=== PATIENT | female | born 1955 | race Caucasian/White ===

== ENCOUNTER 2023-08-19 10:55 | Inpatient (IN) ==
[2023-08-19 12:00] LABS: Basophils # (Auto) 0.04 K/mcL (0.00-0.30); Basophils % (Auto) 0.3 % (0.0-2.0); Eosinophils # (Auto) 0.02 K/mcL (0.00-0.70); Eosinophils % (Auto) 0.1 % (0.0-7.0); Hematocrit 27.9 % (34.1-44.9); Hemoglobin 9.1 g/dL (11.2-15.7); Lymphocytes # (Auto) 1.33 K/mcL (1.50-4.80); Lymphocytes % (Auto) 9.4 % (15.5-49.0); Mean Cell Volume 75.8 fL (80.0-100.0); Mean Corpuscular HGB Conc 32.6 g/dL (31.0-36.0); Monocytes # (Auto) 0.73 K/mcL (0.10-0.90); Monocytes % (Auto) 5.2 % (1.0-12.0); Neutrophils % (Auto) 84.7 % (38.0-78.0); Platelet Count 597 K/mcL (140-440); RBC 3.68 M/mcL (3.59-5.38); Red Cell Distribution Width 15.9 % (11.5-14.5); WBC 14.2 K/mcL (4.5-11.0)
[2023-08-19 12:15] LABS: ALT/SGPT 12 U/L (<40); AST/SGOT 14 U/L (<32); Albumin 3.4 gm/dL (3.2-5.2); Albumin/Globulin Ratio 1.2 (1.0-2.3); Alkaline Phosphatase 86 U/L (39-117); Bilirubin,Total < 0.2 mg/dL (0.1-1.0); Blood Urea Nitrogen 7 mg/dL (8-23); Calcium 8.9 mg/dL (8.6-10.4); Carbon Dioxide 20 mmol/L (22-30); Chloride 90 mmol/L (96-108); Globulin 2.9 gm/dL (2.2-3.7); Glomerular Filtration Rate 90; Glucose 124 mg/dL (70-105); Thyroid Stimulating Hormone 0.01 uIU/mL (0.27-5.01)
[2023-08-19 12:33] LABS: Appearance,Urine Clear (Clear); Bacteria,Urine Many /hpf (0); Bilirubin,Urine Negative (Negative); Color,Urine Yellow; Culture Indicated,Urine Yes; Glucose,Urine (UA) Negative (Negative); Ketones,Urine Negative (Negative); Leukocyte Esterase,Urine Negative /uL (Negative); Nitrate,Urine Positive (Negative); Protein,Urine Negative (Negative); Urine Blood Negative ery/mcL (Negative); Urine RBC 0 /hpf (0-3); Urine Squamous Epithelial Cell 3 /hpf (0-4); Urine WBC 1 /hpf (0-4); Urobilinogen,Urine Normal
[2023-08-19] MEDS: cefTRIAXone 1 GM VIAL IV ONE (13:27)
[2023-08-19] MEDS: AZITHROMYCIN 500 MG in DEXTROSE 5% IN WATER 250 ML IV ONE (13:28)
[2023-08-19 14:04] LABS: Sodium, Urine Random < 20 mmol/L
[2023-08-19 14:06] LABS: Anisocytosis 1+ (None Seen); Lymphocytes % 8 % (15-49); Monocytes % (Manual) 5 % (1-12); Platelet Estimate INCREASED (Normal); RBC Morphology ABNORMAL (Normal); Segmented Neutrophils % 87 % (38-78)
[2023-08-19 14:09] LABS: Osmolality,Urine 157 mOSM/kg (80-1000)
[2023-08-19] MEDS: 0.9 % SODIUM CHLORIDE 500 ML IV ONE (14:38)
[2023-08-19 15:03] LABS: Phosphorous 2.6 mg/dL (2.5-4.5); Uric Acid 3.2 mg/dL (2.5-8.0)
[2023-08-19] MEDS ORDERED: POTASSIUM CHLORIDE 40 MEQ in DEXTROSE 5% IN WATER 500 ML IV PRN (15:40)
[2023-08-19] MEDS ORDERED: SENNOSIDES 1 TABLET PO PRN (15:40)
[2023-08-19] MEDS ORDERED: MAGNESIUM SULFATE 2 GM/50 ML BAG IV PRN (15:40)
[2023-08-19] MEDS ORDERED: POLYETHYLENE GLYCOL 3350 17 GM PACKET PO PRN (15:40)
[2023-08-19] MEDS ORDERED: POTASSIUM CHLORIDE 20 MEQ TABLET PO PRN ×2 (15:40)
[2023-08-19] MEDS ORDERED: IPRATROPIUM/ALBUTEROL 3 ML AMPUL.NEB NEB PRN (15:40)
[2023-08-19] MEDS ORDERED: ONDANSETRON 4 MG/2 ML VIAL IV PRN (15:40)
[2023-08-19] MEDS: 0.9 % SODIUM CHLORIDE 1,000 ML IV SCH (16:56)
[2023-08-19 18:45] LABS: Blood Urea Nitrogen 4 mg/dL (8-23); Calcium 8.3 mg/dL (8.6-10.4); Carbon Dioxide 20 mmol/L (22-30); Chloride 102 mmol/L (96-108); Glomerular Filtration Rate 94; Glucose 95 mg/dL (70-105)
[2023-08-19] MEDS: 0.45 % SODIUM CHLORIDE 1,000 ML IV SCH (20:06)
[2023-08-19] MEDS ORDERED: FAMOTIDINE 20 MG TABLET PO PRN (21:02)
[2023-08-19] MEDS: DOCUSATE SODIUM 100 MG CAPSULE PO SCH (21:18)
[2023-08-19] MEDS ORDERED: DICYCLOMINE 20 MG TABLET PO PRN (21:42)
[2023-08-19] MEDS ORDERED: PREGABALIN 75 MG CAPSULE PO PRN (21:43)
[2023-08-19] MEDS: LEVALBUTEROL TARTRATE INH PRN (21:43)
[2023-08-19] MEDS: LEVALBUTEROL 0.63 MG/3 ML AMPUL.NEB ONE (21:44)
[2023-08-19] MEDS: IPRATROPIUM 2.5 ML AMPUL.NEB ONE (21:44)
[2023-08-19] MEDS: IPRATROPIUM 2.5 ML AMPUL.NEB NEB PRN (21:45)
[2023-08-19] MEDS: LEVALBUTEROL 0.63 MG/3 ML AMPUL.NEB NEB PRN (21:45)
[2023-08-19] MEDS: 0.9 % SODIUM CHLORIDE 10 ML SYRINGE IV SCH (22:33)
[2023-08-19] MEDS: Progesterone Micronized 200 mg capsule PO SCH (22:33)
[2023-08-19] MEDS: ZOLPIDEM 5 MG TABLET PO PRN (22:34)
[2023-08-19] MEDS: CYCLOBENZAPRINE 10 MG TABLET PO PRN (22:35)
[2023-08-19] MEDS: LORazepam 1 MG TABLET PO PRN (22:35)
[2023-08-20] MEDS: IPRATROPIUM/ALBUTEROL 3 ML AMPUL.NEB NEB SCH (06:12)
[2023-08-20 07:17] LABS: ALT/SGPT 9 U/L (<40); AST/SGOT 15 U/L (<32); Albumin 3.4 gm/dL (3.2-5.2); Albumin/Globulin Ratio 1.1 (1.0-2.3); Alkaline Phosphatase 82 U/L (39-117); Bilirubin,Direct < 0.2 mg/dL (0-0.3); Bilirubin,Total < 0.2 mg/dL (0.1-1.0); Blood Urea Nitrogen 5 mg/dL (8-23); Calcium 8.6 mg/dL (8.6-10.4); Carbon Dioxide 18 mmol/L (22-30); Chloride 98 mmol/L (96-108); Glomerular Filtration Rate 94; Glucose 130 mg/dL (70-105); Lactate Dehydrogenase 231 U/L (135-225); Phosphorous 1.9 mg/dL (2.5-4.5); Triglycerides 139 mg/dL (<150); Uric Acid 3.2 mg/dL (2.5-8.0)
[2023-08-20] MEDS: PANTOPRAZOLE 40 MG TABLET PO SCH (07:23)
[2023-08-20] MEDS: predniSONE 5 MG TABLET PO SCH (07:24)
[2023-08-20] MEDS: ENOXAPARIN 40 MG/0.4 ML SYRINGE SQ SCH (08:49)
[2023-08-20] MEDS: ZINC SULFATE 50 MG CAPSULE PO SCH (08:49)
[2023-08-20] MEDS: PHOSPHORUS 250 MG TABLET PO SCH (08:49)
[2023-08-20] MEDS: TAMSULOSIN 0.4 MG CAPSULE PO SCH (08:50)
[2023-08-20] MEDS: LOSARTAN 25 MG TABLET PO SCH (08:50)
[2023-08-20] MEDS: MONTELUKAST 10 MG TABLET PO SCH (08:50)
[2023-08-20] MEDS: cefTRIAXone 1 GM VIAL IV SCH (09:00)
[2023-08-20] MEDS: AZITHROMYCIN 500 MG in DEXTROSE 5% IN WATER 250 ML IV SCH (10:09)
[2023-08-20] MEDS: guaiFENesin 600 MG TAB.SR.12H PO SCH ×2 (10:09→20:36)
[2023-08-20] MEDS: guaiFENesin/CODEINE 10 ML UDC PO PRN (10:51)
[2023-08-20] MEDS: BENZOCAINE/MENTHOL 1 LOZENGE PO PRN (10:51)
[2023-08-20] MEDS: SUMAtriptan SUCCINATE 50 MG TABLET PO PRN (15:16)
[2023-08-20] MEDS ORDERED: LEVALBUTEROL 0.63 MG/3 ML AMPUL.NEB NEB PRN (15:59)
[2023-08-20] MEDS: TOLTERODINE 2 MG CAP.XL.24H PO SCH (20:35)
[2023-08-20] MEDS: MELATONIN 3 MG TABLET PO SCH (20:35)
[2023-08-20] MEDS: ACETAMINOPHEN 325 MG TABLET PO PRN (20:36)
[2023-08-20] MEDS: FLUTICASONE HFA 220MCG INHALER INH SCH (20:38)
[2023-08-20] MEDS: oxyCODONE/APAP 5/325MG TABLET PO PRN (20:39)
[2023-08-21 06:49] LABS: ALT/SGPT 11 U/L (<40); AST/SGOT 16 U/L (<32); Albumin 3.6 gm/dL (3.2-5.2); Albumin/Globulin Ratio 1.2 (1.0-2.3); Alkaline Phosphatase 93 U/L (39-117); Bilirubin,Direct < 0.2 mg/dL (0-0.3); Bilirubin,Total < 0.2 mg/dL (0.1-1.0); Blood Urea Nitrogen 6 mg/dL (8-23); Calcium 9.3 mg/dL (8.6-10.4); Carbon Dioxide 21 mmol/L (22-30); Chloride 100 mmol/L (96-108); Globulin 3.1 gm/dL (2.2-3.7); Glomerular Filtration Rate 100; Glucose 122 mg/dL (70-105); Lactate Dehydrogenase 227 U/L (135-225); Phosphorous 3.5 mg/dL (2.5-4.5); Triglycerides 157 mg/dL (<150); Uric Acid 3.2 mg/dL (2.5-8.0)
[2023-08-21] MEDS: THYROID, PORK 60 MG TABLET PO SCH (06:58)
[2023-08-21 14:08] LABS: Legionella Antigen Urine-SO Negative (Negative)
== END 2023-08-21 11:46 | disposition home or self-care (01) | DRG 70 ==
LOC: ED 10:55 → MEDSUR 15:07
PROVIDERS: ADMIT Internal Medicine; ATTEND Internal Medicine